=== PATIENT | female | born 1930 | race Caucasian/White ===

== ENCOUNTER 2017-07-27 16:59 | Inpatient (IN) | payer MEDICARE, OTHER ==
[~2017-07-27] VITALS: Ht 167.6 cm; Wt 85.6 kg
[~2017-07-27 16:59] MED LIST: BL VIT B-12500 MCG PO; CALCIUM600 M2 PO; COMBIVENT IN; ENALAPRIL10 MG PO; FEOSOL65 MG PO; FISH OIL300 MG PO; MULTIVITAMI1 PO; OSTEO BI-FLX PO; PRILOSEC20 MG PO; VITAMIN B 6100 MG PO
--- NOTE | 2017-07-27 17:35 | NUR ---
PT TO ROOM PER W/C
[2017-07-27 17:37] LABS: HEMATOCRIT 42.6 % (37.0-47.0); IMMATURE GRANULOCYTES 0.5 % (0.0-1.0); MEAN CELL VOLUME 90.1 fL CALC (80.0-100.0); MEAN CORPUSCULAR HGB 29.6 pG CALC (26.0-32.0); MEAN CORPUSCULAR HGB CONC 32.9 g/L CALC (32.0-36.0); NEUT# 17.9 thou/uL (2.00-7.15); RED BLOOD COUNT 4.73 mill/uL (4.20-5.60); RED CELL DISTRI WIDTH 15.6 % (11.5-15.5)
[2017-07-27] MEDS ORDERED: ADVAIR DISK1 (17:37)
[2017-07-27 17:44] LABS: ALBUMIN 4.6 g/dL (3.2-5.0); ALKALINE PHOSPHATASE 93 u/l (38-126); ANION GAP 19 (6-22 (CALC)); BUN 17 mg/dL (8-23); BUN/CREATININE RATIO 17 (12-20 (CALC)); CALCIUM 9.8 mg/dL (8.4-10.2); CARBON DIOXIDE 18 mmol/l (22-30); CHLORIDE 105 mmol/l (95-108); GFR 53 ML/MIN (>=60 (CALC)); GFR FOR AFR.AMER. > 60 ML/MIN (>=60 (CALC)); GLUCOSE 168 mg/dL (82-115); POTASSIUM 4.2 mmol/l (3.5-5.1); SGOT/AST 33 u/l (9-36); SGPT/ALT 16 u/l (11-66); SODIUM 139 mmol/l (137-146); TOTAL PROTEIN 7.6 g/dL (6.3-8.2)
[2017-07-27 18:55] LABS: INFLUENZA A NONE DETECTED (NONE DETECT); INFLUENZA B NONE DETECTED (NONE DETECT)
--- NOTE | 2017-07-27 19:08 | NUR ---
PATIENT TO BE ADMITTED. AWAITING ORDERS AND BED ASSIGNMENT.
--- NOTE | 2017-07-27 19:30 | NUR ---
PATIENT STATES AFTER NEB TREATMENT SHE WAS ABLE TO COUGH UP A LOT OF PHLEGM.
--- NOTE | 2017-07-27 19:46 | NUR ---
REPORT CALLED TO YESSENIA. PATIENT READIED FOR TRANSPORT TO FLOOR.
[2017-07-27 19:50] VITALS: BP 122/72
--- NOTE | 2017-07-27 19:50 | NUR ---
PT TRANSFERRED TO FLOOR VIA WC IN STABLE CONDITION ACCOMPANIED BY JOSE HOWARD;PT AMBULATED WITH A STEADY GAIT TO STANDING SCALE AND BEDSIDE;PT ORIENTED TO ROOM AND CALL LIGHT SYSTEM AND VERBALIZES UNDERSTANDING;VS OBTAINED BY IBIS HUDDLESTON;ASSESSMENT COMPLETED;A&O X3;NON-PRODUCTIVE COUGH NOTED;RESPIRATIONS EVEN AND UNLABORED ON 02 @ 2L VIA NC,PT IS NOT HOME DEPENDENT;PT REPORTS HAVING FLU LIKE SYMPTOMS OF X3 DAYS;CLEAR LUNGS SOUNDS NOTED;CURRENT TEMP 99.3, PT EDUCATED ON LEAVING BLANKETS REMOVED AND AC LOWERED;#20G TO RIGHT HAND FLUSHED AND PATENT;TELE MONITOR IN PLACE;SKIN INTACT,NO REDDNESS OR EDEMA NOTED;PT VOICES NO COMPLAINTS OF PAIN OR DISCOMFORTS AND IS EDUCATED ON PAIN SCALE AND REPORTING;POC DISCUSSED AND PT DENIES ANY NEEDS AT THIS TIME;PT EDUCATED TO CALL FOR ASSISTANCE IF NEEDED;CALL LIGHT IN REACH;WILL CONTINUE TO MONITOR
[2017-07-28 00:08] VITALS: BP 104/66
--- NOTE | 2017-07-28 00:10 | NUR ---
PT APPEARS TO BE SLEEPING IN SEMI FOWLERS POSITION;NO S/S OF DISTRESS NOTED;RESPIRATIONS EVEN AND UNLABORED ON 02 @ 2L VIA NC;TELE MONITOR IN PLACE;VS OBTAINED BY IBIS HUDDLESTON,TEMP 98.9;BED IN THE LOWEST POSITION WITH CALL LIGHT IN REACH;WILL CONTINUE TO MONITOR
--- NOTE | 2017-07-28 04:50 | NUR ---
PT RESTING IN SUPINE POSITION WITH EYES CLOSED;PT CURRENT TEMP 99.9;BLANKETS REMOVED,AC LOWERED AND PRN TYLENOL 650MG PO ADMINISITERED AT THIS TIME;RESPIRATIONS EVEN AND UNLABORED ON 02 @ 2L VIA NC;PT DENIES ANY NEEDS,FRESH WATER PROVIDED;TELE MONITOR IN PLACE WITH CALL LIGHT IN REACH;WILL CONTINUE TO MONITOR
[2017-07-28 05:46] VITALS: BP 111/61
[2017-07-28 07:50] VITALS: BP 116/71
--- NOTE | 2017-07-28 07:50 | NUR ---
ASSESSMENT IS COMPLTED: PT IS RELAXING IN BED , SWEATED ON HER SHEETS. CHANGED. FEVER IS DOWN TO 96.1. NO DISTRESS NOTED. IV SITE IS FREE FROM REDNESS OR EDEMA. TELE MONITOR IN PLACE. CONTINUE TO OSEBRVE AND MONITOR.
[2017-07-28 11:08] VITALS: BP 100/66
--- NOTE | 2017-07-28 12:15 | NUR ---
PT IS RELAXING IN BED WITH FAMILY IN THE ROOM. IV SITE IS FREE FROM REDNESS OR EDEMA. TELE MONITOR IN PLACE.
[2017-07-28 14:51] LABS: URINE BILIRUBIN - DIPSTICK NEGATIVE (NEGATIVE); URINE BLOOD DIPSTICK MODERATE (NEGATIVE); URINE COLOR YELLOW; URINE GLUCOSE - DIPSTICK NEGATIVE (NEGATIVE); URINE KETONE NEGATIVE (NEGATIVE); URINE LEUK ESTERASE NEGATIVE (NEGATIVE); URINE NITRITE - DIPSTICK NEGATIVE (Negative); URINE PH 5.5 (4.5-8.0); URINE PROTEIN - DIPSTICK TRACE mg/dL (NEG-TRACE); URINE SPECIFIC GRAVITY 1.025
[2017-07-28 14:53] LABS: URINE CLARITY CLEAR
[2017-07-28 15:14] LABS: URINE RBC 25-50 RBC/hpf (0-5); URINE SQUAMOUS EPITHELIAL CELL FEW EPI/hpf (0-FEW)
[2017-07-28 16:06] VITALS: BP 110/66
--- NOTE | 2017-07-28 16:15 | NUR ---
PT IS RELAXING IN BED AND HAS BEEN IN THE CHAIR, VISITING WITH FAMILY, NO DISTRESS NOTED. IV SITE IS FREE FROM REDNESS OR EDEMA. TELE MONITOR IN PLACE. CONTINUE TO OBSERVE AND MONITOR.
--- NOTE | 2017-07-28 19:40 | NUR ---
REPORT RECEIVED FROM SAUNDRA BILLINGS;UPON ENTERING THE ROOM PT RESTING IN SEMI FOWLERS POSITION WITH DAUGHTER AT BEDSIDE;ASSESSMENT COMPLETED;RESPIRATIONS EVEN AND UNLABORED,SHALLOW ON O2 @ 2L VIA NC,NOT HOME DEPENDENT;PURSED LIP BREATHING TECHNIQUE EDUCATED AND PT VERBALIZES UNDERSTANDING;WHEEZES NOTED TO BASES;PT VOICES NO COMPLAINTS OF PAIN OR DISCOMFORTS;PROUDUCTIVE COUGH NOTED BUT COLOR AND QUALITY NOT VISUALIZED,PT STATES "I DONT LOOK A IT I JUST THROW IT AWAY";TELE MONITOR IN PLACE;#20G TO RIGHT FOREARM INFUSING NS @100ML/HR WELL,IV SITE APPEARS HEALTHY;PERRLA;STRONG PEDAL PULSES NOTED;SKIN INTACT;SAFETY PRECAUTIONS REINFORCED AND PT EDUCATED TO CALL FOR ASSISTANCE IF NEEDED;FALL PRECAUTIONS IN PLACE WITH BED IN THE LOWEST POSITION;CALL LIGHT IN REACH;WILL CONTINUE TO MONITOR
[2017-07-28 20:35] VITALS: BP 110/66
--- NOTE | 2017-07-29 00:25 | NUR ---
PT ASSISTED TO RESTROOM WITH STEADY GAIT;RESPIRATIONS EVEN AND UNLABORED ON 02 @ 2L VIA NC;TELE MONITOR IN PLACE;PT VOICES NO COMPLAINTS OF PAIN OR DISCOMFORTS;PT VOIDED 150CC OF CLEAR/YELLOW URINE;REPOSITIONED BACK INTO BED;PT DENIES ANY NEEDS AND IS ENCOURAGED TO CALL FOR ASSISTANCE IF NEEDED;CALL LIGHT IN REACH;WILL CONTINUE TO MONITOR
[2017-07-29 00:35] VITALS: BP 114/73
[2017-07-29 04:00] VITALS: BP 112/68
--- NOTE | 2017-07-29 05:30 | NUR ---
PT APPEARS TO BE SLEEPING IN SUPINE POSITION;NO S/S OF DISTRESS NOTED;RESPIRATIONS EVEN AND UNLABORED ON 02 @ 2L;TELE MONITOR IN PLACE;CALL LIGHT IN REACH;WILL CONTINUE TO MONITOR
[2017-07-29 06:38] LABS: HEMATOCRIT 34.5 % (37.0-47.0); HEMOGLOBIN 11.1 g/dl (12.0-16.0); IMMATURE GRANULOCYTES 0.7 % (0.0-1.0); MEAN CELL VOLUME 91.8 fL CALC (80.0-100.0); MEAN CORPUSCULAR HGB 29.5 pG CALC (26.0-32.0); MEAN CORPUSCULAR HGB CONC 32.2 g/L CALC (32.0-36.0); NEUT# 9.57 thou/uL (2.00-7.15); RED BLOOD COUNT 3.76 mill/uL (4.20-5.60); RED CELL DISTRI WIDTH 15.5 % (11.5-15.5)
[2017-07-29 06:54] LABS: ANION GAP 15 (6-22 (CALC)); BUN 21 mg/dL (8-23); BUN/CREATININE RATIO 25 (12-20 (CALC)); CALCIUM 8.5 mg/dL (8.4-10.2); CARBON DIOXIDE 19 mmol/l (22-30); CHLORIDE 112 mmol/l (95-108); CREATININE 0.8 mg/dL (0.5-1.0); GFR > 60 ML/MIN (>=60 (CALC)); GFR FOR AFR.AMER. > 60 ML/MIN (>=60 (CALC)); GLUCOSE 217 mg/dL (82-115); SODIUM 143 mmol/l (137-146)
[2017-07-29 07:00] VITALS: BP 124/71
--- NOTE | 2017-07-29 08:30 | NUR ---
ASSESSMENT IS COMPLETED: IV SITE IS FREE FROM REDNESS OR EDEMA. TELE MONITOR IN PLACE. FAMILY IN THE ROOM. CONTINUE TO OBSERVE AND MONITOR.
--- NOTE | 2017-07-29 08:30 | NUR ---
Received report from Jerrell Banuelos RN. Pt. assessment completed. Pt. sitting up in chair, visiting with family. Normal pupillary reaction, pt states no pain at this time. No SS of SOB when ambulating to bathroom. No SS of weakness, gait is steady. All lung sounds are clear anterior and posterior. Pt. exhibits chronic, moist cough with small amounts of clear sputum. No edema. Skin turgor tenting, but returns to normal <3 seconds. Pt is acyanotic, skin is warm & dry. Bowel sounds are active, pt. states last BM was yesterday (07/28/17). Pt. has good appetite. Safety measures in place, call light and personal belongings within easy reach. Reminded pt. to call for assistance with ambulating.
--- NOTE | 2017-07-29 12:30 | NUR ---
PT HAS BEEN VISTING WITH HER FAMILY NO DISTRESS NOTED. IV SITE IS FREE FROM REDNESS OR EDEMA.
[2017-07-29 12:39] VITALS: BP 149/63
[2017-07-29 15:49] VITALS: BP 145/81
--- NOTE | 2017-07-29 16:30 | NUR ---
PT IS RELAXING IN BED WITH NO DISTRESS NOTED. IV SITE IS FREE FROM, REDNESS OR EDEMA. CONTINUE TO OBSERVE AND MONITOR. TELE MONITOR IN PLACE.
[2017-07-29 18:40] VITALS: BP 136/76
--- NOTE | 2017-07-29 19:15 | NUR ---
PT RESTING IN BED. DAUGHTER IN ROOM. PT IS ALERT AND ORIENTED X3. PERRLA. RESP ARE EVEN AND UNLABORED. PT HAS A PRODUCTIVE COUGH. WHEEZING NOTED THROUGHOUT LUNGS. PT ON O2 @ 2L NC. HR REGULAR. PULSES PALPABLE THROUGHOUT. NO EDEMA NOTED. BS ACTIVE. #20 RFA WITH NS @ KVO. NO REDNESS OR EDEMA NOTED. WILL CONTINUE TO MONITOR
[2017-07-30] VITALS: BP 188/84
--- NOTE | 2017-07-30 | NUR ---
PT RESTING IN BED WITH EYES CLOSED. PT AROUSES EASILY TO VERBAL STIMULI. RESP ARE EVEN AND UNLABORED. NO DISTRESS NOTED. PT STATES THAT SHE IS STILL COUGHING A LOT. WILL CONTINUE TO MONITOR.
--- NOTE | 2017-07-30 01:34 | NUR ---
PT CONTINUES COUGHING. OFFERRED NEB TREATMENT. PT REFUSED STATING THAT SOMETIMES THE NEB TREATMENTS WORSEN THE COUGH. WILL CONTINUE TO MONITOR
[2017-07-30 03:33] VITALS: BP 152/78
--- NOTE | 2017-07-30 04:00 | NUR ---
PT RESTING IN BED WITH EYES CLOSED. PT AROUSES EASILY TO VERBAL STIMULI. RESP ARE EVEN AND UNLABORED. NO DISTRESS NOTED. PT STILL WITH COMPLAINTS OF COUGHING. OFFERRED NEB TREATMENT AND COUGH MEDICINE. PT DECLINED AT THIS TIME. WILL CONTINUE TO MONITOR
--- NOTE | 2017-07-30 07:30 | NUR ---
PT SITTING IN CHAIR; SOB WITH EXERTION; O2 2L VIA NC, 02 SAT 94% VIA NC; PT DENIES PAIN; CALL CARPIO WITHIN REACH; WILL CONTINUE TO MONITOR.
[2017-07-30 07:59] VITALS: BP 168/72
--- NOTE | 2017-07-30 11:02 | NUR ---
DR. MOONEY IN TO SEE PT; PLAN OF CARE DISCUSSED
[2017-07-30 11:41] VITALS: BP 181/94
--- NOTE | 2017-07-30 13:22 | NUR ---
PT UP IN CHAIR VISITING WITH FAMILY; PT WITH PRODUCTIVE COUGH, THIN CLEAR SPUTUM AT TIMES UNABLE TO CATCH HER BREATH; MD NOTIFIED; ORDERS RECEIVED
[2017-07-30 17:00] VITALS: BP 170/86
--- NOTE | 2017-07-30 17:59 | NUR ---
PT TOLERATING DINNER WELL; NO COMPLAINTS VOICED AT THIS TIME; CALL CARPIO WITHIN REACH; WILL CONTINUE TO MONITOR.
[2017-07-30 18:30] VITALS: BP 152/84
--- NOTE | 2017-07-30 19:00 | NUR ---
PT SITTING UP ON SIDE OF BED. FAMILY IN ROOM. PT IS ALERT AND ORIENTED X3. PERRLA. RESP ARE EVEN AND UNLABORED. LUNGS ARE DIMINISHED. PT REPORTS THAT COUGHING HAS DECREASED. HR REGULAR. PULSES PALPABLE THROUGHOUT. NO EDEMA NOTED. BS ACTIVE. PT REPORTS HAVING A NORMAL BM TODAY. #20 RFA WITH NS @KVO. NO REDNESS OR EDEMA NOTED. WILL CONTINUE TO MONITOR
--- NOTE | 2017-07-31 | NUR ---
PT RESTING IN BED WITH EYES CLOSED. PT AROUSES EASILY TO VERBAL STIMULI. RESP ARE EVEN AND UNLABORED. NO DISTRESS NOTED. PT VOICES NO COMPLAINTS AT THIS TIME. WILL CONTINUE TO MONITOR
[2017-07-31 00:02] VITALS: BP 161/89
--- NOTE | 2017-07-31 03:56 | NUR ---
PT RESTING IN BED WITH EYES CLOSED. PT AROUSES TO VERBAL STIMULI. RESP ARE EVEN AND UNLABORED. NO DISTRESS NOTED. PT VOICES NO COMPLAINTS AT THIS TIME. WILL CONTINUE TO MONITOR.
--- NOTE | 2017-07-31 04:30 | NUR ---
LAB INTO DRAW AM LABS
[2017-07-31 05:07] LABS: HEMATOCRIT 36.8 % (37.0-47.0); HEMOGLOBIN 11.8 g/dl (12.0-16.0); MEAN CELL VOLUME 92.2 fL CALC (80.0-100.0); MEAN CORPUSCULAR HGB 29.6 pG CALC (26.0-32.0); MEAN CORPUSCULAR HGB CONC 32.1 g/L CALC (32.0-36.0); NEUT# 10.33 thou/uL (2.00-7.15); RED BLOOD COUNT 3.99 mill/uL (4.20-5.60); RED CELL DISTRI WIDTH 15.5 % (11.5-15.5)
[2017-07-31 05:16] VITALS: BP 160/89
[2017-07-31 05:19] LABS: ANION GAP 15 (6-22 (CALC)); BUN 26 mg/dL (8-23); BUN/CREATININE RATIO 34 (12-20 (CALC)); CALCIUM 9.5 mg/dL (8.4-10.2); CARBON DIOXIDE 22 mmol/l (22-30); CHLORIDE 109 mmol/l (95-108); CREATININE 0.8 mg/dL (0.5-1.0); GFR > 60 ML/MIN (>=60 (CALC)); GFR FOR AFR.AMER. > 60 ML/MIN (>=60 (CALC)); GLUCOSE 162 mg/dL (82-115); POTASSIUM 4.5 mmol/l (3.5-5.1); SODIUM 141 mmol/l (137-146)
--- NOTE | 2017-07-31 07:00 | NUR ---
SHIFT CHANGE REPORT FROM ADRIA, PT AWAKE ALERT AND ORIENTED IN BR AT THIS TIME, EXPERIENCING HACKING COUGH, IVF INFUSING, TELE MONITOR IN PLACE, SET UP FOR MEAL, CALL CARPIO IN REACH.
[2017-07-31 08:29] VITALS: BP 139/77
[2017-07-31] MEDS ORDERED: ROBITUSSIN200 MG/10 PO (10:46)
[2017-07-31] MEDS ORDERED: LEVAQUIN500 MG PO (10:47)
--- NOTE | 2017-07-31 11:45 | NUR ---
SITTING UP IN RECLINER HAVING MEAL, SOB ON EXERTION. JAYE FROM [facility] JUST CALLED TO INQUIRE ABOUT O2 DELIVERY, PT AND FAMILY STATED EXPECTING DELIVERY AT HOME.
[2017-07-31 12:31] VITALS: BP 160/90
--- NOTE | 2017-07-31 12:48 | NUR ---
Discharge instructions given. Patient verbalizes understanding of same. Discharged in fair condition via Wheelchair to Home with family. All belongings sent with pt.
== END 2017-07-31 12:45 | disposition home or self-care (01) | DRG 871 ==
LOC: ED 16:59 → ED-I 18:38 → ED 18:55 → MS2 18:56
PROVIDERS: Emergency Medicine; Internal Medicine; Nurse Practitioner Family; ADMIT Internal Medicine; ATTEND Internal Medicine
DX: A41.9 Sepsis, unspecified organism (principal); J18.9 Pneumonia, unspecified organism; J96.10 Chronic respiratory failure, unspecified whether with hypoxia or hypercapnia; J44.0 Chronic obstructive pulmonary disease with (acute) lower respiratory infection; J44.1 Chronic obstructive pulmonary disease with (acute) exacerbation; I12.9 Hypertensive chronic kidney disease with stage 1 through stage 4 chronic kidney disease, or unspecified chronic kidney disease; N18.9 Chronic kidney disease, unspecified; M15.9 Polyosteoarthritis, unspecified; E78.5 Hyperlipidemia, unspecified; Z87.891 Personal history of nicotine dependence

== ENCOUNTER 2019-08-22 | Day surgery (SDC) | payer MEDICARE, OTHER ==
[~2019-08-22] MED LIST changes: +ADVAIR DISK1; +LEVAQUIN500 MG PO; +ROBITUSSIN200 MG/10 PO
[2019-08-22] MEDS ORDERED: IRON45 MG PO (06:42)
[2019-08-22] MEDS ORDERED: LOSARTAN POTASS50 MG PO (06:42)
[2019-08-22] MEDS ORDERED: CALCIUM 6001 TAB PO (06:43)
[2019-12-18] MEDS ORDERED: TRAMADOL HCL50 MG PO (12:02)
== END 2019-08-22 08:45 | disposition home or self-care (01) ==
DX: M50.320 Other cervical disc degeneration, mid-cervical region, unspecified level (principal); M25.78 Osteophyte, vertebrae
CPT/HCPCS: Q9967

== ENCOUNTER 2019-11-28 | Day surgery (SDC) | payer MEDICARE, OTHER ==
[~2019-11-28] MED LIST changes: +CALCIUM 6001 TAB PO; +IRON45 MG PO; +LOSARTAN POTASS50 MG PO
[2019-12-18] MEDS ORDERED: TRAMADOL HCL50 MG PO (12:02)
== END 2019-11-28 08:14 | disposition home or self-care (01) ==
DX: M54.2 Cervicalgia (principal); M12.9 Arthropathy, unspecified; Z11.59 Encounter for screening for other viral diseases

== ENCOUNTER 2020-07-22 16:55 | Inpatient (IN) | payer MEDICARE, OTHER ==
[~2020-07-22] VITALS: Ht 167.6 cm; Wt 86.0 kg
[~2020-07-22 16:55] MED LIST changes: +TRAMADOL HCL50 MG PO
--- NOTE | 2020-07-22 17:00 | NUR ---
PATIENT TO ROOM VIA WHEELCHAIR AND PHYSICIAN NOTIFIED OF PATIENT STATUS
--- NOTE | 2020-07-22 17:30 | NUR ---
SETTLED,PLAN OF CARE DISCUSSED.
[2020-07-22 17:48] LABS: HEMATOCRIT 41.9 % (37.0-47.0); HEMOGLOBIN 13.4 g/dl (12.0-16.0); IMMATURE GRANULOCYTES 0.4 % (0.0-5.0); MEAN CELL VOLUME 92.9 fL CALC (80.0-100.0); MEAN CORPUSCULAR HGB 29.7 pG CALC (26.0-32.0); NEUT# 16.89 thou/uL (2.00-7.15); RED BLOOD COUNT 4.51 mill/uL (4.20-5.60); RED CELL DISTRI WIDTH 15.5 % (11.5-15.5)
[2020-07-22 18:08] LABS: ALBUMIN 4.5 g/dL (3.2-5.0); ALKALINE PHOSPHATASE 94 u/l (38-126); ANION GAP 15 (6-22 (CALC)); BUN 15 mg/dL (8-23); BUN/CREATININE RATIO 15 (12-20 (CALC)); CARBON DIOXIDE 22 mmol/l (22-30); CHLORIDE 105 mmol/l (95-108); GFR 52 ML/MIN (>=60 (CALC)); GFR FOR AFR.AMER. > 60 ML/MIN (>=60 (CALC)); SGOT/AST 24 u/l (9-36); SODIUM 139 mmol/l (137-146); TOTAL PROTEIN 7.7 g/dL (6.3-8.2)
[2020-07-22 18:10] LABS: BILIRUBIN, TOTAL 0.8 mg/dL (0.0-1.4)
--- NOTE | 2020-07-22 18:15 | NUR ---
straight cath using sterile technique. patient tolerated well. positioned for comfort. call ramirez in reach
[2020-07-22 18:38] LABS: URINE BILIRUBIN - DIPSTICK NEGATIVE (NEGATIVE); URINE BLOOD DIPSTICK LARGE (NEGATIVE); URINE COLOR YELLOW; URINE GLUCOSE - DIPSTICK NEGATIVE (NEGATIVE); URINE KETONE NEGATIVE (NEGATIVE); URINE LEUK ESTERASE NEGATIVE (NEGATIVE); URINE NITRITE - DIPSTICK NEGATIVE (Negative); URINE PROTEIN - DIPSTICK TRACE mg/dL (NEG-TRACE)
[2020-07-22 18:41] LABS: URINE SQUAMOUS EPITHELIAL CELL RARE EPI/hpf (0-FEW)
--- NOTE | 2020-07-22 21:27 | NUR ---
WAITING ON ADMISSION ORDERS TO ADMIT. David Newby CONTACTED.
--- NOTE | 2020-07-22 21:50 | NUR ---
report called to receiving nurse in SBAR format.
--- NOTE | 2020-07-22 22:00 | NUR ---
RECIEVED REPORT FROM JOSE ASENCIO. PT ARRIVED TO [facility] ROOM 279 VIA PORTABLE ACCOMPAINED BY ER STAFF. INTRODUCED SELF TO PT AND DICUSSED POC. PT IS A/O X3. ASSESSMENT AND VITALS COMPLETED. BP 133/65, HR 84, O2 92% ON ROOM AIR. 2L NC REAPPLIED. RESPIRATIONS ARE EVEN AND UNLABORED WITH NO DISTRESS NOTED LUNG SOUNDS ARE CLEAR. HEART RHYTHM IS NORMAL WITH TELE IN PLACE. BOWEL SOUNDS ACTIVE, LAST REPORTED BM 07/22/20. RADIAL AND PEDAL PULSES STRONG. #20G IN RAC FLUSHED, SITE APPEARS HEALTHY AND PATENT.SKIN IS WARM AND INTACT.MACHINE QUILT STUFFER NOTFIED OF ALLERGIES, ALLERGY BAND APPLIED. PT ORIENTED TO ROOM AND CALL LIGHT SYSTEM. PT DENIES OF ANY PAINS OR DISCOMFORTS AT THIS TIME. ALL SAFTEY PRECAUTIONSN ARE IN PLACE WITH CALL LIGHT IN REACH. WILL CONTINUE TO MONITOR
[2020-07-22 22:03] VITALS: BP 137/79
--- NOTE | 2020-07-22 22:05 | NUR ---
PATIENT TRANSFERRED TO [facility]00[facility] 279. VIA WC. STABLE UPO ARRIVAL
[2020-07-23 00:08] VITALS: BP 132/77
[2020-07-23 04:06] VITALS: BP 127/67
[2020-07-23 07:15] VITALS: BP 110/70
--- NOTE | 2020-07-23 07:15 | NUR ---
PATIENT RESTING IN BED AT THIS TIME DENIES ANY PAIN OR NEEDS. O2 ON AT THIS TIME AT 2 L. SPO2 NOTED AT 96%. TELE IN PLACE AND RUNNING S/R 70. SIDERAIL UP X2 CALL LIGHT WITIN IN REACH. PATIENT ALEJANDRO ANY PRODUCTIVE COUGH AT THIS TIME.
[2020-07-23 10:30] VITALS: BP 130/61
--- NOTE | 2020-07-23 12:13 | NUR ---
PATIENT EATING LUNCH AT THIS TIME DENIES ANY PAIN OR NEEDS STATING "I FEEL LITTLE BETTER". CALL LIGHT WITHIN REACH SIDERAILS UP X 2 O2 REMAINS ON AT 2 LITERS
[2020-07-23 16:00] VITALS: BP 151/76
--- NOTE | 2020-07-23 16:10 | NUR ---
PATIENT LAYING IN BED AT THIS TIME 02 ON AT 2 LITERS SPO2 IS 95%. PATIENT DENIES ANY PAIN AND STATES HER PAIN IS "0" OUT OF A SCALE OF 0-10. PATIENT DOES EXHIBIT A DRY NON PRODUCTIVE COUGH AT THIS TIME AND STATES SHE IS NOT SHORT OF BREATH CURRENTLY. SIDERAILS ARE UP X2 CALL LIGHT WITHIN REACH.
[2020-07-23 18:54] VITALS: BP 125/68
--- NOTE | 2020-07-23 19:00 | NUR ---
REPORT RECEIVED FROM Shine BRUNO RN, CARE OF PT ASSUMED AT THIS TIME.
--- NOTE | 2020-07-23 21:00 | NUR ---
PHYSICAL ASSESMENT COMPLETE. SCHEDULED MEDICATION ADMINISTERED. SEE E-MAR. PLAN OF CARE REVIEWED. PT VERBALIZES UNDERSTANDING AND DENIES QUESTIONS. PT DENIES NEEDS AT THIS TIME. CALL CARPIO WITHIN REACH AGRESS TO CALL PRN.
[2020-07-24] VITALS: BP 135/67
--- NOTE | 2020-07-24 01:00 | NUR ---
PT LAYING IN BED WITH EYES CLOSED, APPEARS TO BE SLEEPING COMFORTABLY. RESPIRATIONS REGULAR AND UNLABORED. NO APPARENT DISTRESS. CALL CARPIO REMAINS WITHIN REACH.
[2020-07-24 04:00] VITALS: BP 123/63
[2020-07-24 06:11] LABS: HEMATOCRIT 36.5 % (37.0-47.0); HEMOGLOBIN 11.6 g/dl (12.0-16.0); MEAN CELL VOLUME 94.3 fL CALC (80.0-100.0); MEAN CORPUSCULAR HGB CONC 31.8 g/dL CAL (32.0-36.0); RED BLOOD COUNT 3.87 mill/uL (4.20-5.60); RED CELL DISTRI WIDTH 15.7 % (11.5-15.5)
[2020-07-24 06:31] LABS: ANION GAP 12 (6-22 (CALC)); BUN 30 mg/dL (8-23); BUN/CREATININE RATIO 37 (12-20 (CALC)); CARBON DIOXIDE 22 mmol/l (22-30); CHLORIDE 110 mmol/l (95-108); CREATININE 0.8 mg/dL (0.5-1.0); GFR > 60 ML/MIN (>=60 (CALC)); GFR FOR AFR.AMER. > 60 ML/MIN (>=60 (CALC)); MAGNESIUM 2.2 mg/dL (1.6-2.3); POTASSIUM 4.4 mmol/l (3.5-5.1); SODIUM 140 mmol/l (137-146)
[2020-07-24 07:25] VITALS: BP 115/63
--- NOTE | 2020-07-24 07:25 | NUR ---
PATIENT RESTING IN BED DENIES ANY PAIN OR NEEDS CURRENTLY. LANDSCAPE PHOTOGRAPHER DONE AT THIS TIME SEE INTERVENTIONS. 02 ON 2 LITERS AT THIS TIME SPO2 IS 97%. CALL LIGHT WITHIN REACH SIDERAILS UP X2.
--- NOTE | 2020-07-24 10:25 | NUR ---
WALK TEST DONE AT THIS TIME: AT REST SPO2 IS 94% AFTER O2 OFF FOR 30MINUTES. WALKING PATIENT WITHOUT 02 ON SPO2 IS 86%. O2 REPLACED AND WALKING SPO2 IS 93%. FINAL RESTING O2 IS 93%. DATA GIVEN TO JOZEF ALONSO AT THIS TIME. PATIENT EDUCATED ON THE USE OF OXYGEN WHILE DOING DAILY ADLS. USING PURSE STRING BREATHING TECHNIQUES. PATIENT VERBALIZES UNDERSTANDING OF EDUCATION.
[2020-07-24] MEDS ORDERED: LEVAQUIN750 M1 PO (10:50)
[2020-07-24] MEDS ORDERED: PREDNISONE10 MG PO (10:58)
[2020-07-24 11:54] VITALS: BP 121/58
--- NOTE | 2020-07-24 12:12 | NUR ---
PATIENT LAYING IN BED DENIES ANY NEEDS AT THIS TIME 02 REMAINS ON AT 2 LITERS. CALL LIGHT WITHIN REACH. PATIENT HAS BEEN D/C AT THIS TIME.
--- NOTE | 2020-07-24 13:10 | NUR ---
PATIENT D/C AT THIS TIME. PATIENT VERBALIZES UNDERSTANDING OF D/C INSTRUCTIONS AT THIS TIME.
--- NOTE | 2020-07-24 14:09 | NUR ---
Discharge instructions given. Patient verbalizes understanding of same. Discharged in stable condition via Wheelchair to Home with family. All belongings sent with pt.
== END 2020-07-24 14:09 | disposition home or self-care (01) | DRG 190 ==
LOC: ED 16:55 → ED-I 19:50 → ED 20:13 → MS2 20:14
PROVIDERS: Nurse Practitioner; ADMIT Internal Medicine; ATTEND Internal Medicine
DX: J44.1 Chronic obstructive pulmonary disease with (acute) exacerbation (principal); J18.9 Pneumonia, unspecified organism; J44.0 Chronic obstructive pulmonary disease with (acute) lower respiratory infection; I10 Essential (primary) hypertension; E78.5 Hyperlipidemia, unspecified; Z87.891 Personal history of nicotine dependence; Z99.81 Dependence on supplemental oxygen; Z20.822 Contact with and (suspected) exposure to COVID-19
CPT/HCPCS: G0378; J1650

== ENCOUNTER 2020-11-20 09:15 | Emergency (ER) | payer MEDICARE, OTHER ==
[~2020-11-20 09:15] MED LIST changes: +LEVAQUIN750 M1 PO; +PREDNISONE10 MG PO
[2020-11-20 11:22] VITALS: BP 131/67
== END 2020-11-20 11:22 | disposition home or self-care (01) ==
LOC: ED 09:15
DX: S50.02XA Contusion of left elbow, initial encounter (principal); I10 Essential (primary) hypertension; J44.9 Chronic obstructive pulmonary disease, unspecified; W18.40XA Slipping, tripping and stumbling without falling, unspecified, initial encounter; Y92.009 Unspecified place in unspecified non-institutional (private) residence as the place of occurrence of the external cause